=== PATIENT | female | born 1985 | race Caucasian/White ===

== ENCOUNTER → 2023-10-07 08:47 | Outpatient (REF) | payer BC, SELFPAY ==
[2023-10-07 09:03] LABS: % Basophils 0.4 % (0-2); % Eosinophils 0.8 % (0-6); % Immature Granulocytes 0.2 % (0-0.5); % Lymphocytes 35.9 % (20.5-51.1); % Monocytes 8.2 % (1.7-9.3); % Neutrophils 54.5 % (42.2-75.2); Absolute Lymphocytes 1.9 10^3/uL (1.2-3.4); Absolute Monocytes 0.4 10^3/uL (0.1-0.6); Absolute Neutrophils 2.9 10^3/uL (1.4-6.5); Hematocrit 42.3 % (37.0-47.0); Hemoglobin 14.6 g/dL (12.0-16.0); Mean Corp Hgb Conc. 34.5 g/dL (33.0-37.0); Mean Corpuscular Hgb 28.9 pg (27.0-31.0); Mean Corpuscular Volume 83.6 fL (81.0-99.0); Mean Platelet Volume 9.9 fL (7.4-10.4); Platelet Count 211 10^3/uL (130-400); Red Blood Cell Count 5.06 10^6/uL (4.20-5.40); White Blood Cell Count 5.3 10^3/uL (4.8-10.8)
[2023-10-07 09:41] LABS: ALT (SGPT) 17 U/L (0-35); AST (SGOT) 24 U/L (14-36); Alkaline Phosphatase 71 U/L (38-126); Blood Urea Nitrogen 21 mg/dl (7-17); Calcium 9.4 mg/dl (8.4-10.2); Carbon Dioxide 24 mmol/L (22-30); Glucose 93 mg/dl (70-99); Sodium 136 mmol/L (135-145); eGFR > 60.00
[2023-10-07 09:51] LABS: Albumin 4.9 g/dl (3.5-5.0); Chloride 102 mmol/L (98-107); HDL Cholesterol 69 mg/dl; LDL Cholesterol, Calculated 192 mg/dl; Potassium 4.7 mmol/L (3.5-5.1); Total Bilirubin 0.7 mg/dl (0.2-1.3); Total Cholesterol 274 mg/dl (50-199); Triglyceride 65 mg/dl (10-149); Very Low Density Lipoprotein 13 mg/dl (0-30)
[2023-10-07 10:11] LABS: TSH 1.18 uIU/ml (0.47-4.68)
[2023-10-07 10:13] LABS: Testosterone, Total 57.6 ng/dl
[2023-10-08 22:51] LABS: Total T3 (Sendout) 123 ng/dL (80-200)
== END ==
LOC: OIDL 08:47
PROVIDERS: ATTENDING PHYSICIAN Family Medicine
DX: R53.83 Other fatigue (principal); E66.3 Overweight; L65.9 Nonscarring hair loss, unspecified
CPT/HCPCS: 36415; 80053; 80061; 84270; 84402; 84403; 84439; 84443; 84480; 85025

== ENCOUNTER → 2024-10-26 08:00 | Outpatient (REF) | payer BC, SELFPAY ==
[2024-10-26 09:14] LABS: ALT (SGPT) 16 U/L (0-35); AST (SGOT) 21 U/L (14-36); Albumin 4.9 g/dl (3.5-5.0); Alkaline Phosphatase 49 U/L (38-126); Blood Urea Nitrogen 18 mg/dl (7-17); Calcium 9.4 mg/dl (8.4-10.2); Carbon Dioxide 25 mmol/L (22-30); Chloride 107 mmol/L (98-107); Glucose 100 mg/dl (70-99); Potassium 4.5 mmol/L (3.5-5.1); Sodium 138 mmol/L (135-145); Total Protein 8.3 g/dl (6.3-8.2); eGFR > 60.00
[2024-10-26 14:15] LABS: HDL Cholesterol 57 mg/dl; LDL Cholesterol, Calculated 176 mg/dl; Very Low Density Lipoprotein 25 mg/dl (0-30)
== END ==
LOC: OIDL 08:00
PROVIDERS: ATTENDING PHYSICIAN Nurse Practitioner Adult Health
DX: Z00.00 Encounter for general adult medical examination without abnormal findings (principal); E78.2 Mixed hyperlipidemia
CPT/HCPCS: 36415; 80053; 80061